=== PATIENT | female | born 1995 | race Caucasian/White ===

== ENCOUNTER 2016-07-25 18:06 | Emergency (ER) | payer OTHER | END 2016-07-25 21:25 | disposition home or self-care (01) | LOC: ER1 18:06 | DX: S61.512A Laceration without foreign body of left wrist, initial encounter (principal); Z23 Encounter for immunization; F17.210 Nicotine dependence, cigarettes, uncomplicated; W26.0XXA Contact with knife, initial encounter; Y93.G1 Activity, food preparation and clean up; Y92.009 Unspecified place in unspecified non-institutional (private) residence as the place of occurrence of the external cause | CPT/HCPCS: 12001; 90471; 90715; 99283 ==

== ENCOUNTER 2020-10-25 17:58 | Emergency (ER) | payer OTHER | END 2020-10-25 19:10 | disposition home or self-care (01) | LOC: ER1 17:58 | DX: S06.9X0A Unspecified intracranial injury without loss of consciousness, initial encounter (principal); Z90.89 Acquired absence of other organs; X58.XXXA Exposure to other specified factors, initial encounter | CPT/HCPCS: 99283 ==